=== PATIENT | female | born 1965 | race Caucasian/White ===

== ENCOUNTER 2018-08-15 08:23 | Day surgery (SDC) | payer OTHER ==
[~2018-08-15] VITALS: Ht 160 cm; Wt 81.6 kg
[2018-08-15] MEDS ORDERED: ESOM40EC PO (09:10)
[2018-08-15] MEDS ORDERED: fentaNYL 0.05 MG/ML VIAL ONE (10:45)
[2018-08-15] MEDS ORDERED: MIDAZOLAM 2 MG/2 ML VIAL ONE (10:45)
[2018-08-15] MEDS ORDERED: LIDOCAINE 2% 100 MG/5 ML UJET TP ONE (10:46)
[2018-08-15] MEDS ORDERED: fentaNYL 0.05 MG/ML VIAL IVP ONE (13:10)
[2018-08-15] MEDS ORDERED: MIDAZOLAM 2 MG/2 ML VIAL IVP ONE (13:10)
== END 2018-08-15 12:20 | disposition home or self-care (01) ==
LOC: MDS 08:23 → MMU 08:24 → MDS 12:20
PROVIDERS: ATTEND Internal Medicine Gastroenterology
DX: Z12.11 Encounter for screening for malignant neoplasm of colon (principal); D12.0 Benign neoplasm of cecum; K21.9 Gastro-esophageal reflux disease without esophagitis; E78.5 Hyperlipidemia, unspecified; M19.90 Unspecified osteoarthritis, unspecified site; E66.9 Obesity, unspecified; Z68.31 Body mass index [BMI] 31.0-31.9, adult; Z98.890 Other specified postprocedural states; Z79.899 Other long term (current) drug therapy; Z90.49 Acquired absence of other specified parts of digestive tract; Z98.51 Tubal ligation status
CPT/HCPCS: 43235; 45385; J2250; J3010